=== PATIENT | male | born 1955 | race Caucasian/White ===

== ENCOUNTER 2019-08-16 06:20 | Emergency (ER) | payer SELFPAY ==
[~2019-08-16] VITALS: Ht 180.3 cm; Wt 105.0 kg
[2019-08-16] MEDS ORDERED: ketorolac trometh. 30mg/ml inj. IM ONE (06:55)
[2019-08-16] MEDS ORDERED: HYDROcodone/acetaminophen 5mg/325mg tablet PO ONE (06:55)
[2019-08-16] MEDS ORDERED: morphine 4 MG/ML inj SYRINge IV PRN (07:10)
[2019-08-16] MEDS ORDERED: ondansetron/PF 4mg/2ml inj IV ONE (07:10)
[2019-08-16] MEDS ORDERED: normal saline 1000ML IV soln IVB ONE (07:10)
[2019-08-16] MEDS ORDERED: ketorolac trometh. 30mg/ml inj. IV ONE (07:10)
[2019-08-16 07:46] LABS: BASOPHILS # (AUTO) 0.1 X10'3 (0-0.2); BASOPHILS % (AUTO) 0.7 % (0-1); EOSINOPHILS # (AUTO) 0.6 X10'3 (0-0.9); EOSINOPHILS % (AUTO) 8.1 % (0-6); HEMATOCRIT 40.7 % (42.0-52.0); HEMOGLOBIN 13.4 g/dl (14.0-17.9); LYMPHOCYTES # (AUTO) 1.3 X10'3 (1.1-4.8); LYMPHOCYTES % (AUTO) 17.2 % (21-51); MEAN CORPUSCULAR HEMOGLOBIN 28.2 PG (27.0-31.0); MEAN CORPUSCULAR HGB CONC 32.9 g/dL (33.0-36.5); MEAN CORPUSCULAR VOLUME 85.9 FL (78-98); MONOCYTES # (AUTO) 0.8 X10'3 (0-0.9); NEUTROPHILS # (AUTO) 4.9 X10'3 (1.8-7.7); PLATELET COUNT 353 X10'3 (140-440); RED BLOOD COUNT 4.73 X10'6 (4.70-6.10); WHITE BLOOD COUNT 7.6 X10'3 (4.5-11.0)
[2019-08-16 08:00] LABS: ALANINE AMINOTRANSFERASE 29 U/L (12-78); ALBUMIN 3.1 G/DL (3.4-5.0); ALBUMIN/GLOBULIN RATIO 0.8 (1.1-1.5); ALKALINE PHOSPHATASE 88 IU/L (46-116); ANION GAP 8 (8-16); ASPARTATE AMINO TRANSFERASE 31 U/L (10-37); BILIRUBIN,TOTAL 0.3 MG/DL (0.1-1.0); BLOOD UREA NITROGEN 18 MG/DL (7-18); BUN/CREATININE RATIO 20.7 (5.4-32.0); CALCIUM 8.8 MG/DL (8.5-10.1); CHLORIDE 105 MMOL/L (99-107); CREATININE 0.87 MG/DL (0.60-1.10); GLUCOSE 130 MG/DL (70-104); POTASSIUM 3.7 MMOL/L (3.5-5.1); SODIUM 140 MMOL/L (135-145); eGFR 89 ML/MIN
--- NOTE | 2019-08-16 08:05 | NUR ---
Assumed care of pt from TIM Terry. Report recieved, pt moved to bed 5, placed on gurney, on monitor, in POC.
--- NOTE | 2019-08-16 08:06 | NUR ---
IR in at bedside.
--- NOTE | 2019-08-16 08:09 | NUR ---
Pt with IR RN to IR for Chest tube placement. Report given.
[2019-08-16] MEDS ORDERED: fentaNYL/PF 50MCG/1 ML 2ML syringe ONE (08:14)
[2019-08-16 08:29] VITALS: BP 158/88
[2019-08-16 08:34] VITALS: BP 160/85
[2019-08-16 08:39] VITALS: BP 137/78
[2019-08-16 08:41] VITALS: BP 145/79
--- NOTE | 2019-08-16 08:50 | NUR ---
Pt back from IR. 8.5fr placed in right mid chest. 460ml air out. Thoravent on with minimal bloody drainage noted. Pt denies pain.
[2019-08-16] MEDS ORDERED: OXYC-134 PO (09:06)
[2019-08-16 09:33] VITALS: BP 158/89
--- NOTE | 2019-08-16 09:47 | NUR ---
Pt found wandering in Short Stay after being discharged, and bring brought back to ED for evaluation.
--- NOTE | 2019-08-16 09:53 | NUR ---
Pt out front of ER, now refusing any treatment or care. Refusing to come back into ED. Told tech to "go fuck himself" and continued walking down [facility]. No obvious bleeding observed.
== END 2019-08-16 09:54 | disposition home or self-care (01) ==
LOC: ER 06:20
DX: S22.41XA Multiple fractures of ribs, right side, initial encounter for closed fracture (principal); S42.191A Fracture of other part of scapula, right shoulder, initial encounter for closed fracture; S43.101A Unspecified dislocation of right acromioclavicular joint, initial encounter; J93.9 Pneumothorax, unspecified; F17.210 Nicotine dependence, cigarettes, uncomplicated; Z79.899 Other long term (current) drug therapy; V86.56XA Driver of dirt bike or motor/cross bike injured in nontraffic accident, initial encounter; Y93.89 Activity, other specified; Y92.488 Other paved roadways as the place of occurrence of the external cause; Y99.8 Other external cause status
CPT/HCPCS: 32551; 36415; 71101; 73030; 77012; 80053; 85025; 96374; 96375; 99285; J1885; J2270; J2405; J3010; J7030

== ENCOUNTER 2020-01-12 11:38 | Emergency (ER) | payer MEDICAID ==
[~2020-01-12] VITALS: Ht 180.3 cm; Wt 104.5 kg
[~2020-01-12 11:38] MED LIST: OXYC-134 PO
[2020-01-12] MEDS ORDERED: TETanus/Pertussis (Acell)/Diphther VAC/PF (Tdap-Adult) 0.5ml syringe IMVAC ONE (12:20)
[2020-01-12] MEDS ORDERED: LIDOcaine 1% W/epiNEPHrine 1:200,000 10ml vial IJ ONE (12:20)
[2020-01-12] MEDS ORDERED: bacitracin 15gm ointment TP ONE (12:20)
[2020-01-12] MEDS ORDERED: AMOX-422 PO (12:22)
[2020-01-12] MEDS ORDERED: LIDOcaine 1% w/epiNEPHrine 1:200,000 30ml vial IJ ONE (12:45)
[2020-01-12 13:32] VITALS: BP 122/74
== END 2020-01-12 13:36 | disposition home or self-care (01) ==
LOC: EEVIPCON 11:38 → ER 11:38
DX: S51.812A Laceration without foreign body of left forearm, initial encounter (principal); Z79.2 Long term (current) use of antibiotics; W54.0XXA Bitten by dog, initial encounter; Y93.89 Activity, other specified; Y92.89 Other specified places as the place of occurrence of the external cause; Y99.8 Other external cause status
CPT/HCPCS: 12002; 73090; 90715; 99283

== ENCOUNTER 2020-09-03 11:17 | Emergency (ER) | payer SELFPAY ==
[~2020-09-03] VITALS: Ht 182.9 cm; Wt 109.1 kg
[2020-09-03 11:48] VITALS: BP 156/80
== END 2020-09-03 11:58 | disposition home or self-care (01) ==
LOC: ER 11:17
DX: Z02.89 Encounter for other administrative examinations (principal); R45.1 Restlessness and agitation; Z91.19 Patient's noncompliance with other medical treatment and regimen; Z79.899 Other long term (current) drug therapy
CPT/HCPCS: 99283

== ENCOUNTER 2021-06-01 00:09 | Emergency (ER) | payer SELFPAY ==
[~2021-06-01] VITALS: Ht 182.9 cm; Wt 86.4 kg
[2021-06-01 00:17] VITALS: BP 19/46
--- NOTE | 2021-06-01 00:21 | NUR ---
00:20 MD AT BEDSIDE IRRIGATING DOG BITE TO LEFT LEG
[2021-06-01] MEDS ORDERED: AMOX-117 PO (00:30)
[2021-06-01] MEDS ORDERED: amox tr/potassium clavulanate 875/125mg TAB PO ONE (00:30)
--- NOTE | 2021-06-01 00:34 | NUR ---
PRANEETH DUMONT OFFERED PT ORAL ANTIBIOTIC. PT REFUSED.
== END 2021-06-01 00:48 ==
LOC: ER 00:10
DX: M79.651 Pain in right thigh (principal); Z02.89 Encounter for other administrative examinations
CPT/HCPCS: 99283

== ENCOUNTER 2021-06-05 16:00 | Emergency (ER) | payer OTHER ==
[~2021-06-05] VITALS: Ht 182.9 cm; Wt 90.9 kg
[~2021-06-05 16:00] MED LIST changes: +AMOX-117 PO
[2021-06-05 16:13] VITALS: BP 109/71
== END 2021-06-05 18:25 | disposition home or self-care (01) ==
LOC: EEVIPCON 16:01 → ER 16:01
DX: S51.012A Laceration without foreign body of left elbow, initial encounter (principal); Z79.2 Long term (current) use of antibiotics; Z79.899 Other long term (current) drug therapy; W54.0XXA Bitten by dog, initial encounter; Y93.89 Activity, other specified; Y92.89 Other specified places as the place of occurrence of the external cause; Y99.8 Other external cause status
CPT/HCPCS: 99283

== ENCOUNTER 2023-10-15 12:35 | Emergency (ER) | payer OTHER ==
[~2023-10-15] VITALS: Ht 180.3 cm; Wt 109.1 kg
[~2023-10-15 12:35] MED LIST changes: -AMOX-117 PO
[2023-10-15 14:02] VITALS: BP 156/92; PULSE 93; RESP 15; TEMP 98.4; O2SAT 98
== END 2023-10-15 14:03 ==
LOC: ER 12:35
DX: S00.81XA Abrasion of other part of head, initial encounter (principal); M79.602 Pain in left arm; M54.9 Dorsalgia, unspecified; F17.210 Nicotine dependence, cigarettes, uncomplicated; Z79.899 Other long term (current) drug therapy; Y04.0XXA Assault by unarmed brawl or fight, initial encounter; Y93.89 Activity, other specified; Y92.89 Other specified places as the place of occurrence of the external cause; Y99.8 Other external cause status
CPT/HCPCS: 99283